=== PATIENT | female | born 1985 | race African-American/Black ===

== ENCOUNTER 2019-01-23 09:42 | Emergency (ER) | payer OTHER ==
[2019-01-23 09:54] VITALS: BP 141/63; PULSE 99; TEMP 98.1; BMI 20.3
--- NOTE | 2019-01-23 10:20 | PDOC ---
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, UVITIS - Psycho Social/Smoking Cessation Hx Smoking History: Current every day smoker Number of Cigarettes Smoked Daily: 3 Information on smoking cessation initiated: No Hx Alcohol Use: Yes Drug/Substance Use Hx: No Review of Systems - Review of Systems Able to Perform ROS?: Yes Comments:: 01/23/19 11:26 CONSTITUTIONAL: Absent: fever, chills, diaphoresis, generalized weakness, malaise, loss of appetite HEENT: Absent: rhinorrhea, nasal congestion, throat pain, throat swelling, difficulty swallowing, mouth swelling, ear pain, eye pain, visual Changes CARDIOVASCULAR: Present: chest pain Absent: loss of consciousness, palpitations, irregular heart rate, peripheral edema RESPIRATORY: Absent: cough, shortness of breath, dyspnea with exertion, orthopnea, wheezing, stridor, hemoptysis GASTROINTESTINAL: Absent: abdominal pain, abdominal distension, nausea, vomiting, diarrhea, constipation, melena, hematochezia GENITOURINARY: Absent: dysuria, frequency, urgency, hesitancy, hematuria, flank pain, genital pain MUSCULOSKELETAL: Absent: myalgia, arthralgia, joint swelling SKIN: Absent: rash, itching, pallor NEUROLOGIC: Absent: headache, focal weakness or paresthesias, dizziness, unsteady gait, seizure, mental status changes, bladder or bowel incontinence PSYCHIATRIC: Present: anxiety Absent: depression, suicidal or homicidal ideation, hallucinations. Is the patient limited [place] proficient: No *Physical Exam - Vital Signs Last Vital Signs Temp Pulse Resp BP Pulse Ox 98.1 F 99 H 16 141/63 99 01/23/19 09:44 01/23/19 09:44 01/23/19 09:44 01/23/19 09:44 01/23/19 09:44 - Physical Exam Comments: 01/23/19 11:28 GENERAL: Well developed, well nourished. Awake and alert. No acute distress. HEENT: Normocephalic, atraumatic. PERRLA, EOMI. No conjunctival pallor. Sclera are non- icteric. Moist mucous membranes. Oropharynx is clear. NECK: Supple. Full ROM. CARDIOVASCULAR: Regular rate and rhythm. No murmurs, rubs, or gallops. Distal pulses are 2+ and symmetric. PULMONARY: No evidence of respiratory distress. Lungs clear to auscultation bilaterally. No wheezing, rales or rhonchi. MUSCULOSKELETAL Normal range of motion at all joints. No bony deformities or tenderness. No CVA tenderness. EXTREMITIES: No cyanosis. No clubbing. No edema. No calf tenderness. SKIN: Warm and dry. Normal capillary refill. No rashes. No jaundice. NEUROLOGICAL: Alert, awake, appropriate. Cranial nerves 2-12 intact. No deficits to light touch and temperature in face, upper extremities and lower extremities. No motor deficits in the in face, upper extremities and lower extremities. Normoreflexic in the upper and lower extremities. Normal speech. Toes are down- going bilaterally. Gait is normal without ataxia. PSYCHIATRIC: Cooperative. Good eye contact. Appropriate mood and affect. ED Treatment Course - LABORATORY CBC & Chemistry Diagram: 01/23/19 10:23 Medical Decision Making - Medical Decision Making 01/23/19 11:28 Patient is a 33-year-old female with past medical history of anxiety, who presents to the ER today for chest pain and anxiety. She states that she was at a alliance party last night where she used both alcohol and cocaine. When she woke up this morning she had 2 out of 10 chest pain. Because she had the chest pain she states she became more nervous so she came to the ER for evaluation. Denies fevers, chills, palpitations, shortness of breath, difficulty breathing, nausea, vomiting and diarrhea. A/P: Chest pain and anxiety On exam lungs are clear to auscultation bilaterally with no wheezes rales or rhonchi. Good aeration to the bases bilaterally. S1-S2 present with no murmurs rubs or gallops. Regular rate and rhythm. Given history of alcohol and cocaine use last night, will obtain basic labs and EKG. EKG: Rate 91 bpm, normal intervals and axis. Normal sinus rhythm. No acute ST- T wave changes. Overall normal EKG as read by me. Vistaril ordered for anxiety Reevaluate 01/23/19 11:55 Anxiety improved after Vistaril Lab work is unremarkable. Patient feels better at this time, will discharge home with strict return precautions I discussed the physical exam findings, ancillary test results and final diagnoses with the patient. I answered all of the patient's questions. The patient was satisfied with the care received and felt comfortable with the discharge plan and treatment plan. The Patient agrees to follow up with the primary care physician/specialist within 24-72 hours. Return precautions were given. Discharge - Discharge Information Problems reviewed: Yes Clinical Impression/Diagnosis: Anxiety Chest pain Qualifiers: Chest pain type: unspecified Qualified Code(s): R07.9 - Chest pain, unspecified Condition: Stable Disposition: HOME - Admission No - Follow up/Referral Referrals: Vicente Blake MD [Staff Physician] - - Patient Discharge Instructions Patient Printed Discharge Instructions: DI for Atypical Chest Pain Additional Instructions: You were evaluated for your chest pain today. It is most likely due to the alcohol and cocaine from last night. Your lab work was normal. Please drink plenty of fluids and avoid illicit drugs Follow-up with your primary care doctor this week. Return to the ER for worsening chest pain, dizziness, vomiting or if you have any changes in your symptoms. - Post Discharge Activity Work/Back to School Note: Back to Work
[2019-01-23] MEDS ORDERED: SODIUM CHLORIDE 1,000 ML IV STA (10:21)
[2019-01-23] MEDS ORDERED: hydrOXYzine HCL 10 MG/5 ML LIQUID BULK BOTTLE PO ONE (11:02)
[2019-01-23] MEDS ORDERED: hydrOXYzine PAMOATE 25 MG CAPSULE (FP) PO ONE (11:07)
[2019-01-23 11:08] LABS: ALBUMIN 4.3 g/dl (3.4-5.0); ALK PHOS 63 U/L (45-117); ANION GAP 10 MMOL/L (8-16); BILIRUBIN,TOTAL 0.4 mg/dL (0.2-1); CALCIUM 9.4 mg/dL (8.5-10.1); CHLORIDE 106 mmol/L (98-107); CO2 23 mmol/L (21-32); GLUCOSE,RANDOM 65 mg/dL (74-106); POTASSIUM 4.1 mmol/L (3.5-5.1); SGOT/AST 20 U/L (15-37); SGPT/ALT 22 U/L (13-61); SODIUM 139 mmol/L (136-145); TOT PROT 7.7 g/dl (6.4-8.2)
--- NOTE | 2019-01-24 20:05 | EKG ---
Test Reason : Blood Pressure : / mmHG Vent. Rate : 091 BPM Atrial Rate : 091 BPM P-R Int : 138 ms QRS Dur : 064 ms QT Int : 346 ms P-R-T Axes : 052 009 008 degrees QTc Int : 425 ms NORMAL SINUS RHYTHM NORMAL ECG NO PREVIOUS ECGS AVAILABLE Confirmed by NOEMÍ GAR MD ([id number]) on 01/24/2019 8:04:53 PM Referred By: Confirmed By:NOEMÍ GAR MD
== END 2019-01-23 12:03 | disposition home or self-care (01) ==
LOC: JER 09:42 → JERFT 09:42
PROC: 3E0337Z Introduction of Electrolytic and Water Balance Substance into Peripheral Vein, Percutaneous Approach (ICD-10-PCS; principal; 2019-01-23)
DX: F41.9 Anxiety disorder, unspecified (principal); R07.9 Chest pain, unspecified; F10.10 Alcohol abuse, uncomplicated; F14.10 Cocaine abuse, uncomplicated; F17.210 Nicotine dependence, cigarettes, uncomplicated; Z88.5 Allergy status to narcotic agent
CPT/HCPCS: 36415; 80053; 82550; 82553; 84484; 84703; 93005; 93010; 99284-25; J7030